=== PATIENT | female | born 1970 | race Caucasian/White ===

== ENCOUNTER 2017-08-06 02:11 | Emergency (ER) | payer OTHER ==
[2017-08-06] MEDS: AUGMENTIN 875 MG TAB PO (04:15)
[2017-08-06] MEDS: NORCO 5/325MG TABLET (BULK FOR ED) PO (04:15)
== END 2017-08-06 04:32 | disposition home or self-care (01) ==
LOC: M ED 02:11
DX: H66.92 Otitis media, unspecified, left ear (principal); H72.92 Unspecified perforation of tympanic membrane, left ear; E03.9 Hypothyroidism, unspecified; F33.9 Major depressive disorder, recurrent, unspecified; Z79.899 Other long term (current) drug therapy; Z79.890 Hormone replacement therapy; Z88.1 Allergy status to other antibiotic agents
CPT/HCPCS: 99283